=== PATIENT | male | born 1985 | race African-American/Black ===

== ENCOUNTER 2019-02-13 23:24 | Emergency (ER) | payer MEDICARE, MEDICAID ==
[~2019-02-13] VITALS: Ht 182.9 cm; Wt 98.0 kg
[2019-02-14] MEDS ORDERED: IBUPROFEN 600MG TABLET PO STA (02:23)
[2019-02-14] MEDS ORDERED: LORAZEPAM 2MG/ML CPJ IM ONE (02:30)
[2019-02-14] MEDS ORDERED: LIDOCAINE HCL/PF 1% 10 MG/ML 5ML VIAL IJ ONE (03:30)
[2019-02-14] MEDS ORDERED: BACITRACIN ZINC OINT UDPKT TOP ONE (03:30)
[2019-02-14 04:36] VITALS: BP 145/95
== END 2019-02-14 04:38 | disposition home or self-care (01) ==
LOC: ER 23:24
DX: K13.0 Diseases of lips (principal); L01.00 Impetigo, unspecified; F84.0 Autistic disorder
CPT/HCPCS: 96372; 99283; J2060; J3490; Z7610

== ENCOUNTER 2023-05-04 12:23 | Emergency (ER) | payer MEDICARE, MEDICAID ==
[~2023-05-04] VITALS: Ht 182.9 cm; Wt 95.2 kg
[2023-05-04 12:34] VITALS: BP 151/91; PULSE 102; RESP 16; TEMP 98.6; O2SAT 100
[2023-05-04 13:10] LABS: BASOPHILS % 1.2 % (0.0-2.0); HEMATOCRIT. 46.6 % (42.0-52.0); HEMOGLOBIN. 15.3 g/dL (14.0-18.0); LYMPHOCYTES % 34.3 % (20.0-50.0); MEAN CORPUSCULAR HEMOGLOBIN 28.4 pg (28.0-32.0); MEAN CORPUSCULAR HGB CONC 32.9 g/dL (31.0-37.0); MEAN CORPUSCULAR VOLUME 86.2 fL (80.0-94.0); MEAN PLATELET VOLUME 8.1 fl (7.4-10.4); MONOCYTES % 6.5 % (2.0-8.0); PLATELET 291 x1000/uL (130-400)
[2023-05-04 13:17] LABS: ALANINE AMINOTRANSFERASE 34 IU/L (10-49); ALBUMIN 4.6 g/dL (3.2-4.8); ASPARTATE AMINOTRANSFERASE 25 IU/L (<34); BILIRUBIN TOTAL 0.7 mg/dL (0.1-1.0); CARBON DIOXIDE 20 mEq/L (21-32); CHLORIDE 102 mEq/L (98-107); CREATININE 0.9 mg/dL (0.6-1.3); GLUCOSE 102 mg/dL (70-105); POTASSIUM 3.9 mEq/L (3.5-5.1); PROTEIN TOTAL 7.5 g/dL (6.0-8.3); SODIUM 136 mEq/L (136-145); UREA NITROGEN BLOOD 7 mg/dL (9-23)
[2023-05-04 13:27] LABS: TROPONIN I HIGH SENSITIVITY < 4 ng/L (3.0-53)
[2023-05-04 13:30] LABS: INR 1.2; PROTHROMBIN TIME 12.3 sec (9.6-11.0)
[2023-05-04] MEDS ORDERED: ALBU6.7H15 INH (17:33)
[2023-05-04] MEDS ORDERED: GUAI-450 MT (17:33)
[2023-05-04] MEDS ORDERED: P50 MT (17:33)
== END 2023-05-04 18:24 | disposition home or self-care (01) ==
LOC: ER 12:23
DX: J20.9 Acute bronchitis, unspecified (principal); I49.9 Cardiac arrhythmia, unspecified
CPT/HCPCS: 36415; 71045; 80053; 84484; 85025; 93005; 99285